=== PATIENT | female | born 1940 | race Native Hawaiian/Other Pacific Islander ===

== ENCOUNTER 2017-05-21 14:29 | Outpatient (CLI) | payer OTHER ==
[~2017-05-21 14:29] MED LIST: BENA20TA2 PO; CYCL10TA35 PO; LEVO500T PO; MACROBID100 MG OR; METO100T37 PO; ONDA4TAB3 PO; VESICARE5 MG OR
[2017-05-21 15:01] LABS: PLATELET COUNT 189 K/uL (152-353)
[2017-05-21 15:12] LABS: POTASSIUM 3.9 mmol/L (3.6-5.2); SODIUM 137 mmol/L (136-145)
== END 2017-05-21 15:30 | disposition home or self-care (01) ==
LOC: LABW 14:29
PROVIDERS: Nurse Practitioner Adult Health
DX: R53.1 Weakness (principal); L65.8 Other specified nonscarring hair loss; I10 Essential (primary) hypertension
CPT/HCPCS: 36415; 80053; 83735; 84436; 84439; 84443; 84479; 85027

== ENCOUNTER 2017-07-24 09:39 | Outpatient (CLI) | payer OTHER, MEDICARE ==
[2017-07-24 13:55] LABS: PLATELET COUNT 191 K/uL (152-353)
[2017-07-24 14:20] LABS: POTASSIUM 3.9 mmol/L (3.6-5.2); SODIUM 136 mmol/L (136-145)
== END 2017-07-24 11:00 | disposition home or self-care (01) ==
LOC: RAD 09:39 → LAB 09:39 → RAD 11:00
PROVIDERS: Nurse Practitioner Family
DX: M79.641 Pain in right hand (principal)
CPT/HCPCS: 80053; 84550; 85027; 85651; 86039; 86430

== ENCOUNTER 2017-11-02 09:11 | Outpatient (CLI) | payer OTHER, MEDICARE | END 2017-11-02 22:13 | disposition home or self-care (01) | LOC: RAD 09:11 | DX: M85.89 Other specified disorders of bone density and structure, multiple sites (principal); M81.0 Age-related osteoporosis without current pathological fracture ==

== ENCOUNTER 2018-04-17 12:46 | Outpatient (CLI) | payer OTHER, MEDICARE | END 2018-04-17 19:30 | disposition home or self-care (01) | LOC: LAB 12:46 | DX: N39.0 Urinary tract infection, site not specified (principal) | CPT/HCPCS: 81000; 87077; 87086; 87088; 87186 ==

== ENCOUNTER 2019-07-22 08:39 | Outpatient (CLI) | payer OTHER, MEDICARE ==
[~2019-07-22] VITALS: Ht 30.5 cm; Wt 0.5 kg
== END 2019-07-22 23:15 | disposition home or self-care (01) ==
LOC: NM 08:39
DX: R07.89 Other chest pain (principal); R94.39 Abnormal result of other cardiovascular function study
CPT/HCPCS: A9500; J2785

== ENCOUNTER 2020-01-26 11:25 | Outpatient (CLI) | payer OTHER, MEDICARE ==
[2020-01-26 11:59] LABS: PLATELET COUNT 213 K/uL (152-353)
[2020-01-26 12:06] LABS: POTASSIUM 3.6 mmol/L (3.6-5.2)
== END 2020-01-26 20:49 | disposition home or self-care (01) ==
LOC: US 11:25
PROVIDERS: Family Medicine
DX: M25.552 Pain in left hip (principal); M79.605 Pain in left leg; N28.89 Other specified disorders of kidney and ureter; I10 Essential (primary) hypertension; M19.90 Unspecified osteoarthritis, unspecified site; R35.0 Frequency of micturition
CPT/HCPCS: 36415; 80053; 81000; 85027; 87077; 87086; 87088; 87186

== ENCOUNTER 2020-06-18 10:29 | Outpatient (CLI) | payer OTHER, MEDICARE | END 2020-06-18 23:01 | disposition home or self-care (01) | LOC: LAB 10:29 | DX: Z20.828 Contact with and (suspected) exposure to other viral communicable diseases (principal) | CPT/HCPCS: 87635; G2023; U0003 ==

== ENCOUNTER 2020-06-28 15:02 | Outpatient (CLI) | payer OTHER, MEDICARE ==
[2020-06-28 15:58] LABS: POTASSIUM 4.1 mmol/L (3.6-5.2)
[2020-06-28 16:00] LABS: PLATELET COUNT 182 K/uL (152-353)
== END 2020-06-28 19:25 | disposition home or self-care (01) ==
LOC: LABW 15:02
PROVIDERS: Family Medicine
DX: R42 Dizziness and giddiness (principal); R00.2 Palpitations; R51 Headache; I10 Essential (primary) hypertension
CPT/HCPCS: 36415; 80053; 81000; 84439; 84443; 85027; 93005

== ENCOUNTER 2020-07-14 09:51 | Outpatient (CLI) | payer OTHER, MEDICARE | END 2020-07-14 23:22 | disposition home or self-care (01) | LOC: US 09:51 | DX: R42 Dizziness and giddiness (principal); R51 Headache; I10 Essential (primary) hypertension ==

== ENCOUNTER 2020-11-03 14:27 | Outpatient (CLI) | payer OTHER, MEDICARE ==
[2020-11-03 15:48] LABS: PLATELET COUNT 177 K/uL (152-353)
[2020-11-03 16:08] LABS: POTASSIUM 4.3 mmol/L (3.6-5.2)
== END 2020-11-03 20:28 | disposition home or self-care (01) ==
LOC: LAB 14:27
PROVIDERS: ATTEND Family Medicine
DX: M54.89 Other dorsalgia (principal); I10 Essential (primary) hypertension; R00.2 Palpitations; M25.552 Pain in left hip; M25.551 Pain in right hip
CPT/HCPCS: 36415; 80053; 81000; 84439; 84443; 85027

== ENCOUNTER 2020-11-23 14:08 | Outpatient (CLI) | payer OTHER, MEDICARE | END 2020-11-23 23:25 | disposition home or self-care (01) | LOC: LABW 14:08 | PROVIDERS: ATTEND Nurse Practitioner Adult Health | DX: I47.1 Supraventricular tachycardia (principal) | CPT/HCPCS: 36415; 80162 ==

== ENCOUNTER 2020-12-21 14:23 | Outpatient (CLI) | payer OTHER, MEDICARE | END 2020-12-21 21:09 | disposition home or self-care (01) | LOC: LABW 14:23 | PROVIDERS: ATTEND Specialist | DX: R00.0 Tachycardia, unspecified (principal); Z09 Encounter for follow-up examination after completed treatment for conditions other than malignant neoplasm; Z79.899 Other long term (current) drug therapy | CPT/HCPCS: 36415; 80162 ==

== ENCOUNTER 2021-01-25 10:47 | Outpatient (CLI) | payer OTHER, MEDICARE ==
[2021-01-25 11:34] LABS: PLATELET COUNT 241 K/uL (152-353)
[2021-01-25 11:52] LABS: POTASSIUM 3.6 mmol/L (3.6-5.2)
== END 2021-01-25 21:49 | disposition home or self-care (01) ==
LOC: LABW 10:47
PROVIDERS: ATTEND Family Medicine
DX: R05 Cough (principal); R50.9 Fever, unspecified; R10.13 Epigastric pain; I49.8 Other specified cardiac arrhythmias; I47.1 Supraventricular tachycardia; Z79.899 Other long term (current) drug therapy
CPT/HCPCS: 80053; 80162; 81000; 84443; 85027; 93005

== ENCOUNTER 2021-01-26 10:28 | Outpatient (CLI) | payer OTHER, MEDICARE | END 2021-01-26 22:00 | disposition home or self-care (01) | LOC: LAB 10:28 | PROVIDERS: ATTEND Family Medicine | DX: R73.01 Impaired fasting glucose (principal); R79.89 Other specified abnormal findings of blood chemistry; Z79.899 Other long term (current) drug therapy | CPT/HCPCS: 83036; 84439 ==

== ENCOUNTER 2021-04-07 14:35 | Outpatient (CLI) | payer OTHER, MEDICARE | END 2021-04-07 23:50 | disposition home or self-care (01) | LOC: MRI 14:35 | PROVIDERS: ATTEND Family Medicine | DX: R42 Dizziness and giddiness (principal); R51.9 Headache, unspecified; H54.7 Unspecified visual loss; I48.91 Unspecified atrial fibrillation; E11.9 Type 2 diabetes mellitus without complications ==

== ENCOUNTER 2021-04-11 10:10 | Outpatient (CLI) | payer OTHER, MEDICARE | END 2021-04-11 21:46 | disposition home or self-care (01) | LOC: MRI 10:10 | PROVIDERS: ATTEND Family Medicine | DX: R42 Dizziness and giddiness (principal); R51.9 Headache, unspecified; H54.7 Unspecified visual loss; I48.91 Unspecified atrial fibrillation; E11.9 Type 2 diabetes mellitus without complications ==

== ENCOUNTER 2021-10-04 10:38 | Outpatient (CLI) | payer OTHER | END 2021-10-04 19:04 | disposition home or self-care (01) | LOC: RAD 10:38 | PROVIDERS: ATTEND Family Medicine | DX: R05.9 Cough, unspecified (principal); J20.9 Acute bronchitis, unspecified ==

== ENCOUNTER 2022-03-30 14:21 | Outpatient (CLI) | payer OTHER ==
[2022-03-30 15:11] LABS: PLATELET COUNT 183 K/uL (152-353)
== END 2022-03-30 19:25 | disposition home or self-care (01) ==
LOC: LABW 14:21
PROVIDERS: ATTEND Family Medicine
DX: R60.0 Localized edema (principal); R06.02 Shortness of breath; I10 Essential (primary) hypertension; I48.91 Unspecified atrial fibrillation; E11.9 Type 2 diabetes mellitus without complications
CPT/HCPCS: 36415; 80053; 80162; 81000; 83880; 84439; 84443; 85027

== ENCOUNTER 2022-04-14 09:14 | Outpatient (CLI) | payer OTHER | END 2022-04-14 20:25 | disposition home or self-care (01) | LOC: RAD 09:14 | PROVIDERS: ATTEND Family Medicine | DX: M79.89 Other specified soft tissue disorders (principal) ==

== ENCOUNTER 2022-06-15 07:52 | Outpatient (CLI) | payer OTHER ==
[2022-06-15 08:15] LABS: PLATELET COUNT 160 K/uL (152-353)
[2022-06-15 08:22] LABS: POTASSIUM 4.5 mmol/L (3.6-5.2)
== END 2022-06-15 19:23 | disposition home or self-care (01) ==
LOC: CT 07:52
PROVIDERS: ATTEND Family Medicine
DX: Z01.411 Encounter for gynecological examination (general) (routine) with abnormal findings (principal); R10.84 Generalized abdominal pain; M54.89 Other dorsalgia; R60.0 Localized edema; N39.0 Urinary tract infection, site not specified
CPT/HCPCS: 36415; 80053; 85027; Q9963

== ENCOUNTER 2022-07-14 08:54 | Outpatient (CLI) | payer OTHER | END 2022-07-14 19:05 | disposition home or self-care (01) | LOC: US 08:54 | PROVIDERS: ATTEND Nurse Practitioner | DX: I48.0 Paroxysmal atrial fibrillation (principal); I77.89 Other specified disorders of arteries and arterioles; I48.91 Unspecified atrial fibrillation ==

== ENCOUNTER 2022-07-25 08:46 | Outpatient (CLI) | payer OTHER ==
[~2022-07-25] VITALS: Ht 160 cm; Wt 73.9 kg
== END 2022-07-25 20:19 | disposition home or self-care (01) ==
LOC: NM 08:46
PROVIDERS: ATTEND Nurse Practitioner
DX: I48.0 Paroxysmal atrial fibrillation (principal); I77.89 Other specified disorders of arteries and arterioles
CPT/HCPCS: A9500; J2785

== ENCOUNTER 2022-08-14 10:52 | Outpatient (CLI) | payer OTHER ==
[2022-08-14 11:18] LABS: PLATELET COUNT 184 K/uL (152-353)
[2022-08-14 11:33] LABS: POTASSIUM 4.3 mmol/L (3.6-5.2)
== END 2022-08-14 19:02 | disposition home or self-care (01) ==
LOC: LABW 10:52
PROVIDERS: ATTEND Internal Medicine Interventional Cardiology
DX: I48.0 Paroxysmal atrial fibrillation (principal); R00.2 Palpitations; I10 Essential (primary) hypertension; R07.89 Other chest pain; R93.1 Abnormal findings on diagnostic imaging of heart and coronary circulation
CPT/HCPCS: 36415; 80048; 85027

== ENCOUNTER 2022-09-07 20:51 | Outpatient (CLI) | payer OTHER | END 2022-09-07 22:03 | disposition home or self-care (01) | LOC: LAB 20:51 | PROVIDERS: ATTEND Family Medicine | DX: R19.7 Diarrhea, unspecified (principal) | CPT/HCPCS: 82272; 87015; 87045; 87324; 87328; 87329; 87449; 87899 ==

== ENCOUNTER 2022-09-15 18:37 | Outpatient (CLI) | payer OTHER | END 2022-09-15 20:36 | disposition home or self-care (01) | LOC: LAB 18:37 | PROVIDERS: ATTEND Family Medicine | DX: N39.0 Urinary tract infection, site not specified (principal) | CPT/HCPCS: 81000; 87077; 87086; 87088; 87186 ==

== ENCOUNTER → 2022-10-11 | Outpatient (CLI) | payer OTHER | LOC: RAD 17:13 | PROVIDERS: ATTEND Family Medicine | DX: R05.9 Cough, unspecified (principal); R06.02 Shortness of breath; I25.10 Atherosclerotic heart disease of native coronary artery without angina pectoris; I10 Essential (primary) hypertension ==

== ENCOUNTER 2023-02-07 07:40 | Outpatient (CLI) | payer OTHER ==
[2023-02-07 08:13] LABS: POTASSIUM 5.1 mmol/L (3.6-5.2)
== END 2023-02-07 17:00 | disposition home or self-care (01) ==
LOC: LAB 07:40
PROVIDERS: ATTEND Nurse Practitioner
DX: I25.10 Atherosclerotic heart disease of native coronary artery without angina pectoris (principal)
CPT/HCPCS: 80048; 80162

== ENCOUNTER 2023-02-14 12:25 | Outpatient (CLI) | payer OTHER | END 2023-02-14 19:05 | disposition home or self-care (01) | LOC: US 12:25 | PROVIDERS: ATTEND Family Medicine | DX: M54.2 Cervicalgia (principal); I48.91 Unspecified atrial fibrillation; I25.10 Atherosclerotic heart disease of native coronary artery without angina pectoris; I10 Essential (primary) hypertension ==

== ENCOUNTER 2023-02-21 11:59 | Outpatient (CLI) | payer OTHER | END 2023-02-21 19:32 | LOC: RAD 11:59 | PROVIDERS: ATTEND Family Medicine | DX: M54.2 Cervicalgia (principal) ==

== ENCOUNTER 2023-07-03 14:15 | Inpatient (IN) | payer OTHER ==
[~2023-07-03] VITALS: Ht 160 cm; Wt 73.9 kg
[2023-07-03] MEDS ORDERED: LABETALOL100 MG PO (15:54)
[2023-07-03] MEDS ORDERED: DONE5TAB PO (15:55)
[2023-07-03] MEDS ORDERED: AMLODIPINE BESYLATE PO (15:55)
[2023-07-03] MEDS ORDERED: PANTOPRAZOLE 40MG TA PO (15:56)
[2023-07-03] MEDS ORDERED: PROZAC10 MG PO (15:56)
[2023-07-03] MEDS ORDERED: FURO40TA93 PO (15:56)
[2023-07-03] MEDS ORDERED: LISI5TAB10 PO (15:57)
[2023-07-03] MEDS ORDERED: LORA1TAB17 PO (15:57)
[2023-07-03] MEDS ORDERED: ROPINIROLE1 MG PO (15:58)
[2023-07-03] MEDS ORDERED: POTASSIUM CHLO20 ME1 PO (15:58)
[2023-07-03] MEDS ORDERED: LANTUS SOL100 UNIT/M SC (15:58)
[2023-07-03] MEDS ORDERED: LIPITOR40 MG PO (15:59)
[2023-07-03 16:02] LABS: POTASSIUM 4.4 mmol/L (3.6-5.2)
[2023-07-03 16:10] LABS: PLATELET COUNT 357 K/uL (152-353)
[2023-07-03 16:58] VITALS: BP 121/69; TEMP 98.2; Ht 160 cm; Wt 73.9 kg
[2023-07-03 19:40] VITALS: BP 138/79; TEMP 99
[2023-07-03 23:36] VITALS: BP 142/89; TEMP 97.8
[2023-07-04 03:35] VITALS: BP 137/68; TEMP 97.4
[2023-07-04 08:00] VITALS: BP 139/71; TEMP 97.6
[2023-07-04 09:42] LABS: PLATELET COUNT 355 K/uL (152-353)
[2023-07-04 09:53] LABS: POTASSIUM 4.8 mmol/L (3.6-5.2)
[2023-07-04 10:06] LABS: PARTIAL THROMBOPLASTIN TIME 34.9 SECONDS (23.9-36.7)
[2023-07-04 11:51] VITALS: BP 139/76; TEMP 98.1
[2023-07-04 15:51] VITALS: BP 140/78; TEMP 98.1
[2023-07-04 19:45] VITALS: BP 137/98; TEMP 98.2
[2023-07-05] VITALS: BP 127/69; TEMP 98.4
[2023-07-05 03:33] VITALS: BP 143/74; TEMP 97.5
[2023-07-05 08:02] VITALS: BP 135/79; TEMP 98
[2023-07-05 12:00] VITALS: BP 143/75; TEMP 97.4
[2023-07-05 15:50] VITALS: BP 132/76; TEMP 97.5
[2023-07-05 20:00] VITALS: BP 129/71; TEMP 98.3
[2023-07-06 04:00] VITALS: BP 126/80; TEMP 98.5
[2023-07-06 04:43] LABS: PLATELET COUNT 369 K/uL (152-353)
[2023-07-06 04:57] LABS: POTASSIUM 4.6 mmol/L (3.6-5.2)
[2023-07-06 08:00] VITALS: BP 132/76; TEMP 98
== END 2023-07-06 12:38 | disposition home or self-care (01) | DRG 195 ==
LOC: MED/SURG 14:15
PROVIDERS: ADMIT Family Medicine; ATTEND Family Medicine
DX: J18.9 Pneumonia, unspecified organism (principal); R05.9 Cough, unspecified; R06.02 Shortness of breath; R53.1 Weakness; R42 Dizziness and giddiness; N18.30 Chronic kidney disease, stage 3 unspecified; I50.9 Heart failure, unspecified; I48.91 Unspecified atrial fibrillation; E11.9 Type 2 diabetes mellitus without complications; F41.8 Other specified anxiety disorders; R07.89 Other chest pain; Z79.4 Long term (current) use of insulin; Z79.01 Long term (current) use of anticoagulants
CPT/HCPCS: 80053; 81002; 82550; 82948; 84443; 84484; 85027; 85379; 85610; 85730; 87040; 87635; 93005; 94664; 94760; 96361; 96365; 96366; 96367; 96372; 96374; 96375; 96376; J1956; J0696; J1650; J1940; J2930; U0003

== ENCOUNTER 2023-08-17 13:50 | Outpatient (CLI) | payer OTHER ==
[~2023-08-17 13:50] MED LIST changes: +AMLODIPINE BESYLATE PO; +DONE5TAB PO; +FURO40TA93 PO; +LABETALOL100 MG PO; +LANTUS SOL100 UNIT/M SC; +LIPITOR40 MG PO; +LISI5TAB10 PO; +LORA1TAB17 PO; +PANTOPRAZOLE 40MG TA PO; +POTASSIUM CHLO20 ME1 PO; +PROZAC10 MG PO; +ROPINIROLE1 MG PO
== END 2023-08-17 19:52 | disposition home or self-care (01) ==
LOC: RAD 13:50
PROVIDERS: ATTEND Family Medicine
DX: R06.02 Shortness of breath (principal); I48.91 Unspecified atrial fibrillation